=== PATIENT | female | born 2000 | race American Indian/Alaskan Native ===

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

== ENCOUNTER 2020-02-18 01:20 | Emergency (ER) | payer OTHER, MEDICAID ==
[2020-02-18 01:40] VITALS: BP 137/84
[2020-02-18] MEDS ORDERED: IBUPROFEN 400 MG TAB PO ONE (02:26)
[2020-02-18] MEDS ORDERED: ACETAMINOPHEN 325 MG TAB PO ONE (02:26)
--- NOTE | 2020-02-18 03:39 | XRay Report ---
Complete rib series with frontal chest 3 views INDICATION: Chest pain IMPRESSION: No displaced rib fracture is identified. The lungs are clear. No pleural effusion. Signer Name: Francisco Gutiérrez MD Signed: 02/18/2020 3:35 AM Workstation Name: [id number]
[2020-02-18 03:44] LABS: Bacteria,Urine 1+ /HPF (Negative); Bilirubin,Urine NEG (Negative); Blood,Urine NEG (Negative); Color,Urine Yellow (Yellow); Mucus,Urine 1+ /HPF; Protein,Urine <15 mg/dL mg/dL (Negative)
[2020-02-18 03:51] LABS: HCG Qualitative,Urine Negative (Negative)
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
== END 2020-02-18 04:45 | disposition home or self-care (01) ==
LOC: ED 01:20
DX: S20.212A Contusion of left front wall of thorax, initial encounter (principal); J45.909 Unspecified asthma, uncomplicated; F12.10 Cannabis abuse, uncomplicated; Z79.1 Long term (current) use of non-steroidal anti-inflammatories (NSAID); Z79.899 Other long term (current) drug therapy; Z88.8 Allergy status to other drugs, medicaments and biological substances; Y04.8XXA Assault by other bodily force, initial encounter; Y93.89 Activity, other specified; Y92.89 Other specified places as the place of occurrence of the external cause; Y99.8 Other external cause status
CPT/HCPCS: 81001; 81025; 87086

== ENCOUNTER 2020-10-27 16:55 | Emergency (ER) | payer MEDICAID, OTHER ==
[2020-10-27 17:49] VITALS: BP 122/86
[2020-10-27 18:50] LABS: Basophils % (Auto) 0.4 % (0.0-1.8); Eosinophils # (Auto) 0.1 K/mm3 (0.0-0.4); Eosinophils % (Auto) 1.2 % (0.0-4.3); Hematocrit 40.6 % (30.3-42.9); Hemoglobin 13.7 gm/dl (10.1-14.3); Lymphocytes # (Auto) 1.5 K/mm3 (1.2-5.4); Lymphocytes % (Auto) 27.9 % (13.4-35.0); Mean Corpuscular HGB Conc 34 % (30-34); Mean Corpuscular Volume 86 fl (79-97); Monocytes # (Auto) 0.3 K/mm3 (0.0-0.8); Monocytes % (Auto) 6.5 % (0.0-7.3); Platelet Count 242 K/mm3 (140-440); Red Blood Count 4.74 M/mm3 (3.65-5.03); Red Cell Distribution Width 12.8 % (13.2-15.2)
[2020-10-27 18:53] LABS: Bilirubin,Urine NEG (Negative); Blood,Urine SM (Negative); Color,Urine Amber (Yellow); Mucus,Urine 3+ /HPF
[2020-10-27 19:14] LABS: Alanine Aminotransferase 12 units/L (7-56); Blood Urea Nitrogen 10 mg/dL (7-17); Calcium 10.3 mg/dL (8.4-10.2); Hemolysis Index 6
[2020-10-27 19:17] LABS: BUN/Creatinine Ratio 14
--- NOTE | 2020-10-27 20:11 | Emergency Department Report ---
ED Female HPI - General Chief complaint: Weakness Stated complaint: WARTS BLEEDING Source: patient Mode of arrival: Ambulatory Limitations: No Limitations - History of Present Illness Initial comments: Patient is a A0 19-year-old -[place] female with a history of asthma and anxiety who presents to the ED with complaint of acute onset persistent diffuse generalized weakness, vaginal itching, vaginal irritation and vaginal pain for the last 2 days. Patient also states that she has had significant family stress and that 24 hours ago she developed heavy vaginal bleeding which persisted for 3 hours and which has since resolved. Patient states that her LMP was October 14, 2020 and that she is not on any control. Patient admits to having unprotected sexual intercourse. Patient denies dizziness, syncope, fever, chills, cough, sore throat, abdominal pain, dysuria, urinary frequency and urgency, vaginal discharge, low back pain, nausea and vomiting or diarrhea. MD Complaint: vaginal bleeding, other (vaginal itching and pain; generalized weakness) -: Sudden, days(s) (2) Location: labia Radiation: non-radiating Severity: moderate Severity scale (0 -10): 3 Quality: burning, aching, other (itching) Consistency: constant Improves with: none Worsens with: none Are you Now?: No Associated Symptoms: denies other symptoms, rash (mildly erythematous itchy painful rash on clitoris and labia minora). denies: vaginal discharge, vaginal bleeding, abdominal pain, nausea/vomiting, fever/chills, headaches, loss of appetite, dysuria, hematuria, seizure, shortness of breath, syncope, weakness - Related Data Sexually active: Yes : 1 Para: 1 A: 0 Previous Rx's Medication Instructions Recorded Last Taken Type Acyclovir [Zovirax Tab] 800 mg PO Q12H #14 tab 12/25/16 Unknown Rx Acyclovir [Zovirax] 1 applic TP TID #1 tube 12/25/16 Unknown Rx Ferrous Sulfate [Feosol 325 MG tab] 325 mg PO BID #30 tablet 10/31/18 Unknown Rx Ibuprofen [Motrin] 600 mg PO Q8H PRN #30 tablet 10/31/18 Unknown Rx Ibuprofen [Motrin 600 MG tab] 600 mg PO Q8H PRN #20 tablet 01/17/19 Unknown Rx Nitrofurantoin Luna/M-Cryst 100 mg PO Q12HR #14 capsule 01/17/19 Unknown Rx [Macrobid CAP] Phenazopyridine [Pyridium] 200 mg PO BID #6 tab 01/17/19 Unknown Rx Ibuprofen [Motrin 400 MG tab] 400 mg PO Q8H PRN #30 tablet 02/18/20 Unknown Rx tiZANidine [Zanaflex 4mg TAB] 4 mg PO Q12H PRN #12 tablet 02/18/20 Unknown Rx traMADoL [Ultram] 50 mg PO Q6HR PRN #12 tablet 02/18/20 Unknown Rx Nystatin Oint [Mycostatin Oint] 1 applicatio TP BID #1 tube 10/27/20 Unknown Rx hydrOXYzine PAMOATE [Vistaril] 25 mg PO Q12HR PRN #30 capsule 10/27/20 Unknown Rx Allergies Allergy/AdvReac Type Severity Reaction Status Date / Time bacitracin Allergy Intermediate Hives Verified 10/31/18 10:05 neomycin Allergy Intermediate Itching Verified 10/31/18 10:06 [From Neosporin ([id number])] polymyxin B Allergy Intermediate Itching Verified 10/31/18 10:06 [From Neosporin ([id number])] ED Review of Systems ROS: Stated complaint: WARTS BLEEDING Other details as noted in HPI Constitutional: weakness (generalized). denies: chills, fever Eyes: denies: eye pain, eye discharge, vision change ENT: denies: ear pain, throat pain Respiratory: denies: cough, shortness of breath, wheezing Cardiovascular: denies: chest pain, palpitations Endocrine: no symptoms reported Gastrointestinal: denies: abdominal pain, nausea, vomiting, diarrhea Genitourinary: other (vaginal itching and pain). denies: urgency, dysuria, discharge Musculoskeletal: denies: back pain, joint swelling, arthralgia Skin: rash (Mild erythematous itchy rash on labia minora and around clitoris), change in color, pruritus. denies: lesions, change in hair/nails, other Neurological: denies: headache, weakness, paresthesias Psychiatric: denies: anxiety, depression Hematological/Lymphatic: denies: easy bleeding, easy bruising ED Past Medical Hx - Past Medical History Previous Medical History?: Yes Hx Hypertension: No Hx Congestive Heart Failure: No Hx Diabetes: No Hx Deep Vein Thrombosis: No Hx Renal Disease: No Hx Sickle Cell Disease: No Hx Seizures: No Hx Asthma: Yes Hx COPD: No Hx HIV: No Additional medical history: eczema - Surgical History Past Surgical History?: No Additional Surgical History: denies - Social History Smoking Status: Never Smoker Substance Use Type: None - Medications Home Medications: Home Medications Medication Instructions Recorded Confirmed Last Taken Type Acyclovir [Zovirax Tab] 800 mg PO Q12H #14 tab 12/25/16 10/31/18 Unknown Rx Acyclovir [Zovirax] 1 applic TP TID #1 tube 12/25/16 10/31/18 Unknown Rx Ferrous Sulfate [Feosol 325 MG tab] 325 mg PO BID #30 tablet 10/31/18 Unknown Rx Ibuprofen [Motrin] 600 mg PO Q8H PRN #30 tablet 10/31/18 Unknown Rx Ibuprofen [Motrin 600 MG tab] 600 mg PO Q8H PRN #20 tablet 01/17/19 Unknown Rx Nitrofurantoin Luna/M-Cryst 100 mg PO Q12HR #14 capsule 01/17/19 Unknown Rx [Macrobid CAP] Phenazopyridine [Pyridium] 200 mg PO BID #6 tab 01/17/19 Unknown Rx Ibuprofen [Motrin 400 MG tab] 400 mg PO Q8H PRN #30 tablet 02/18/20 Unknown Rx tiZANidine [Zanaflex 4mg TAB] 4 mg PO Q12H PRN #12 tablet 02/18/20 Unknown Rx traMADoL [Ultram] 50 mg PO Q6HR PRN #12 tablet 02/18/20 Unknown Rx Nystatin Oint [Mycostatin Oint] 1 applicatio TP BID #1 tube 10/27/20 Unknown Rx hydrOXYzine PAMOATE [Vistaril] 25 mg PO Q12HR PRN #30 capsule 10/27/20 Unknown Rx ED Physical Exam - General Limitations: No Limitations General appearance: alert, in no apparent distress - Head Head exam: Present: atraumatic, normocephalic, normal inspection - Eye Eye exam: Present: normal appearance, PERRL, EOMI Pupils: Present: normal accommodation - ENT ENT exam: Present: normal exam, normal orophraynx, mucous membranes moist, TM's normal bilaterally, normal external ear exam - Neck Neck exam: Present: normal inspection, full ROM - Respiratory Respiratory exam: Present: normal lung sounds bilaterally. Absent: respiratory distress, wheezes, rales, rhonchi, chest wall tenderness, accessory muscle use, decreased breath sounds, prolonged expiratory - Cardiovascular Cardiovascular Exam: Present: normal rhythm, bradycardia, normal heart sounds. Absent: systolic murmur, diastolic murmur, rubs, gallop - GI/Abdominal GI/Abdominal exam: Present: soft, normal bowel sounds. Absent: tenderness, guarding, rebound, hyperactive bowel sounds, hypoactive bowel sounds, organomegaly, bruit - External exam: Present: erythema, other (Mildly erythematous scaly rashes on labia minora and clitoris consistent with vaginal yeast infection) Speculum exam: Present: normal speculum exam Bi-manual exam: Present: other (Female provider service dispatcher Ms. Laura GONZALEZ present) - Extremities Exam Extremities exam: Present: normal inspection, full ROM, normal capillary refill - Back Exam Back exam: Present: normal inspection, full ROM. Absent: tenderness, CVA tenderness (R), CVA tenderness (L), muscle spasm, paraspinal tenderness, vertebral tenderness - Neurological Exam Neurological exam: Present: alert, oriented X3, CN II-XII intact, normal gait, reflexes normal - Psychiatric Psychiatric exam: Present: normal affect, normal mood. Absent: depressed - Skin Skin exam: Present: warm, dry, intact, normal color, rash (Mild erythematous scaly rash on labia minora and clitoris), erythema. Absent: cyanosis, petechiae, pallor, abrasion, ecchymosis ED Course Vital Signs 10/27/20 17:45 Temperature 98.0 F Pulse Rate 51 L Respiratory 16 Rate Blood Pressure 122/86 O2 Sat by Pulse 100 Oximetry ED Medical Decision Making - Lab Data Result diagrams: 10/27/20 18:32 10/27/20 18:32 - Medical Decision Making This is a A0 19-year-old -[place] female with a history of asthma and anxiety who presents to the ED with complaint of acute onset persistent diffuse generalized weakness, vaginal itching, vaginal irritation and vaginal pain for the last 2 days. Patient also states that she has had significant family stress and that 24 hours ago she developed heavy vaginal bleeding which persisted for 3 hours and which has since resolved. Patient states that her LMP was October 14, 2020 and that she is not on any control. Patient admits to having unprotected sexual intercourse. In the ED, patient is alert and oriented x3 and is not in any distress. Lab test results are reviewed and are all nonactionable. Urinalysis is unremarkable. Patient test is negative. Pelvic exam in the presence of a female provider service dispatcher Ms. Laura GONZALEZ showed mildly erythematous scaly rashes around the clitoris and labia minora consistent with vaginal yeast infection. Patient stated that she has a recently prescribed Diflucan 150 mg tablets at home and would prefer to take this as previously advised. Patient was therefore discharged home on medications for anxiety and nystatin ointment and advised to follow-up with her primary care physician or CERTIFIED FIRE INVESTIGATOR physician in 7 to 10 days for reevaluation. Patient advised return to the ED immediately if symptoms get worse. - Differential Diagnosis UTI; Paola vaginitis; STD; Bacterial vagosis Critical care attestation.: If time is entered above; I have spent that time in minutes in the direct care of this critically ill patient, excluding procedure time. ED Disposition Clinical Impression: Candidal vaginitis, Anxiety as acute reaction to exceptional stress Disposition: DC- TO HOME OR SELFCARE Is pt being admited?: No Does the pt Need Aspirin: No Condition: Stable Instructions: Vaginitis, Flhy-wa-[id number], Vaginal Yeast Infection, Adult, Generalized Anxiety Disorder, Adult Additional Instructions: All lab test results were reviewed and are all nonactionable. Your symptoms are likely due to vaginal yeast infection. Therefore take medications that you are ready have for yeast infection, apply the ointment to the affected area as advised. Return to the ED immediately if symptoms get worse. Otherwise follow- up with your primary care physician in 7 to 10 days for reevaluation. Prescriptions: Nystatin Oint [Mycostatin Oint] 1 applicatio TP BID #1 tube hydrOXYzine PAMOATE [Vistaril] 25 mg PO Q12HR PRN #30 capsule PRN Reason: Anxiety Referrals: [facility] [Provider Group] - 3-5 Days Time of Disposition: 20:20 Print Language: SENEGALESE
== END 2020-10-27 20:50 | disposition home or self-care (01) ==
LOC: ED 16:55
DX: B37.3 Candidiasis of vulva and vagina (principal); F41.1 Generalized anxiety disorder; F43.0 Acute stress reaction; J45.909 Unspecified asthma, uncomplicated; Z79.1 Long term (current) use of non-steroidal anti-inflammatories (NSAID); Z79.899 Other long term (current) drug therapy; Z88.8 Allergy status to other drugs, medicaments and biological substances
CPT/HCPCS: 36415; 80053; 81001; 84703; 85025; 99283

== ENCOUNTER 2020-11-10 14:04 | Emergency (ER) | payer MEDICAID, OTHER ==
--- NOTE | 2020-11-10 19:18 | Emergency Department Report ---
ED General Adult HPI - General Chief complaint: Chest Pain Stated complaint: CHEST PAIN/TONSILS HURTING/TROUBLE BREATHING Time Seen by Provider: 11/10/20 19:08 Source: patient Mode of arrival: Ambulatory Limitations: No Limitations - History of Present Illness Initial comments: 19-year-old female patient with history of asthma presents to emergency depar tment complaints of sore throat, productive cough, and chest pain for 3 days. No known sick contacts. No current steroid or antibiotic use. No recent travel. Patient has not received her COVID-19 vaccine series. Denies fever, chills, wheezing, shortness of breath, hemoptysis, dysphagia, hoarseness. Denies all other complaints at this time. - Related Data Previous Rx's Medication Instructions Recorded Last Taken Type Acyclovir [Zovirax Tab] 800 mg PO Q12H #14 tab 12/25/16 Unknown Rx Acyclovir [Zovirax] 1 applic TP TID #1 tube 12/25/16 Unknown Rx Ferrous Sulfate [Feosol 325 MG tab] 325 mg PO BID #30 tablet 10/31/18 Unknown Rx Ibuprofen [Motrin] 600 mg PO Q8H PRN #30 tablet 10/31/18 Unknown Rx Ibuprofen [Motrin 600 MG tab] 600 mg PO Q8H PRN #20 tablet 01/17/19 Unknown Rx Nitrofurantoin Childress/M-Cryst 100 mg PO Q12HR #14 capsule 01/17/19 Unknown Rx [Macrobid CAP] Phenazopyridine [Pyridium] 200 mg PO BID #6 tab 01/17/19 Unknown Rx Ibuprofen [Motrin 400 MG tab] 400 mg PO Q8H PRN #30 tablet 02/18/20 Unknown Rx tiZANidine [Zanaflex 4mg TAB] 4 mg PO Q12H PRN #12 tablet 02/18/20 Unknown Rx traMADoL [Ultram] 50 mg PO Q6HR PRN #12 tablet 02/18/20 Unknown Rx Nystatin Oint [Mycostatin Oint] 1 applicatio TP BID #1 tube 10/27/20 Unknown Rx hydrOXYzine PAMOATE [Vistaril] 25 mg PO Q12HR PRN #30 capsule 10/27/20 Unknown Rx Albuterol Sulfate [Proair 90 mcg IH Q4H PRN #1 aer.pow.ba 11/10/20 Unknown Rx Respiclick] predniSONE [Deltasone] 20 mg PO QDAY 5 Days tab 11/10/20 Unknown Rx Allergies Allergy/AdvReac Type Severity Reaction Status Date / Time bacitracin Allergy Intermediate Hives Verified 11/10/20 14:41 neomycin Allergy Intermediate Itching Verified 11/10/20 14:41 [From Neosporin ([id number])] polymyxin B Allergy Intermediate Itching Verified 11/10/20 14:41 [From Neosporin ([id number])] ED Review of Systems ROS: Stated complaint: CHEST PAIN/TONSILS HURTING/TROUBLE BREATHING Other details as noted in HPI Other: GENERAL: Negative for fever. ENT: Positive for sore throat. CARDIOVASCULAR: Positive for chest pain. PULMONARY: Positive for cough. GASTROINTESTINAL: Negative for abdominal pain. MUSCULOSKELETAL: Negative for back pain. NEUROLOGICAL: Negative for headache. INTEGUMENTARY: Negative for rash. ED Past Medical Hx - Past Medical History Hx Hypertension: No Hx Congestive Heart Failure: No Hx Diabetes: No Hx Deep Vein Thrombosis: No Hx Renal Disease: No Hx Sickle Cell Disease: No Hx Seizures: No Hx Asthma: Yes Hx COPD: No Hx HIV: No Additional medical history: eczema - Surgical History Additional Surgical History: denies - Social History Smoking Status: Never Smoker Substance Use Type: None - Medications Home Medications: Home Medications Medication Instructions Recorded Confirmed Last Taken Type Acyclovir [Zovirax Tab] 800 mg PO Q12H #14 tab 12/25/16 10/31/18 Unknown Rx Acyclovir [Zovirax] 1 applic TP TID #1 tube 12/25/16 10/31/18 Unknown Rx Ferrous Sulfate [Feosol 325 MG tab] 325 mg PO BID #30 tablet 10/31/18 Unknown Rx Ibuprofen [Motrin] 600 mg PO Q8H PRN #30 tablet 10/31/18 Unknown Rx Ibuprofen [Motrin 600 MG tab] 600 mg PO Q8H PRN #20 tablet 01/17/19 Unknown Rx Nitrofurantoin Childress/M-Cryst 100 mg PO Q12HR #14 capsule 01/17/19 Unknown Rx [Macrobid CAP] Phenazopyridine [Pyridium] 200 mg PO BID #6 tab 01/17/19 Unknown Rx Ibuprofen [Motrin 400 MG tab] 400 mg PO Q8H PRN #30 tablet 02/18/20 Unknown Rx tiZANidine [Zanaflex 4mg TAB] 4 mg PO Q12H PRN #12 tablet 02/18/20 Unknown Rx traMADoL [Ultram] 50 mg PO Q6HR PRN #12 tablet 02/18/20 Unknown Rx Nystatin Oint [Mycostatin Oint] 1 applicatio TP BID #1 tube 10/27/20 Unknown Rx hydrOXYzine PAMOATE [Vistaril] 25 mg PO Q12HR PRN #30 capsule 10/27/20 Unknown Rx Albuterol Sulfate [Proair 90 mcg IH Q4H PRN #1 aer.pow.ba 11/10/20 Unknown Rx Respiclick] predniSONE [Deltasone] 20 mg PO QDAY 5 Days tab 11/10/20 Unknown Rx ED Physical Exam - General Limitations: No Limitations - Other Other exam information: General: Awake and alert. Tearful, anxious. Head: Atraumatic, normocephalic. Eyes: EOMI. Pupils are equal and round. Normal sclera and conjunctiva. ENT: Oral mucosa is moist. Normal pharyngeal exam. Neck: Supple. No lymphadenopathy. Pulmonary: No respiratory distress. Clear to auscultation bilaterally. Cardiac: Regular rate and rhythm. Pulses are palpable and equal bilaterally. No lower extremity cyanosis or edema. Skin: Warm and dry. No rashes. Abdomen: Soft, non-tender, non-protuberant. No guarding, rigidity, or rebound. Bowel sounds are normal. No organomegaly or masses noted. Back: Normal alignment. No CVA tenderness. Extremities: Symmetrical. Full range of motion intact. Neurological: Alert and oriented, appropriately interactive, no focal deficits. Psych: Cooperative. Appropriate mood and affect. Speech is evenly metered. Thoughts are logically construed. ED Course Vital Signs 11/10/20 14:46 Temperature 98.6 F Pulse Rate 78 Respiratory 28 H Rate Blood Pressure 102/64 O2 Sat by Pulse 100 Oximetry ED Medical Decision Making - EKG Data 11/10/20 19:18 EKG shows normal sinus rhythm with a ventricular rate of 68 bpm. Normal axis. Normal [place] interval. Normal QT interval. Good R wave progression. No ST segment changes. Over read by attending emergency physician, who agrees with this interpretation. - Medical Decision Making Differential diagnosis including but not limited to: asthma exacerbation, pneumonia, pleural effusion, influenza, pertussis, viral upper respiratory infection Patient presents to the emergency department with signs and/or symptoms that arise low risk clinical suspicion for pulmonary embolism. The patient has none of the following clinical criteria: age >50, heart rate >100, room air O2 saturation <94%, history of DVT/PE, recent trauma/surgery, hemoptysis, exogenous estrogen, or signs/symptoms of DVT. As a result, this patient has very low probability of pulmonary embolism and further testing is not indicated. On reevaluation, patient is stable and symptoms have improved. No hypoxia, no respiratory distress. Tachypnea noted in triage resolved. She appears less tearful and less anxious. Chest x-ray without acute process. History and exam findings suggestive of viral upper respiratory infection. No clinical indication for further diagnostic work-up on an emergent basis at this time. COVID-19 testing is currently unavailable at this facility. Patient will be discharged home with beta agonist inhaler and short course of steroid due to her history of underlying asthma. Patient expressed understanding and is agreeable to plan of care. Disease transmission precautions discussed. Strict return precautions provided. Repeat exam is unremarkable and benign. History, exam, diagnostic testing, and current condition do not suggest worrisome pathology to warrant further testing, continued ED treatment, admission, or surgical evaluation at this point. Given the low probability of a significant medical illness, it would be more likely to result in harm than benefit to perform further testing at this stage. Discussed findings, presumptive diagnosis, need for follow-up and specific signs/symptoms that should prompt immediate return to the emergency department. Instructions were explained in detail to the patient in addition to giving written discharge information. Patient expressed understanding and was given the opportunity to ask questions, all of which were satisfactorily answered prior to discharge home. Critical care attestation.: If time is entered above; I have spent that time in minutes in the direct care of this critically ill patient, excluding procedure time. ED Disposition Clinical Impression: Viral upper respiratory tract infection with cough, History of asthma Disposition: -01 TO HOME OR SELFCARE Is pt being admited?: No Does the pt Need Aspirin: No Condition: Stable Instructions: Viral Respiratory Infection, [id number] Additional Instructions: Take Tylenol every 4 hours and Motrin every 8 hours as needed for pain. Use Albuterol as previously directed. Take Prednisone as directed. Use [id number] cough/cold medicines as directed. Honey is an excellent natural cough suppressant. Rest. Drink plenty of fluids. Wash hands frequently to prevent disease transmission. Do not share food or drinks with others. Follow-up with primary care provider this week. Call tomorrow to schedule an appointment. See referral information below. Return to the emergency department immediately for new or worsening symptoms. Prescriptions: predniSONE [Deltasone] 20 mg PO QDAY 5 Days tab Albuterol Sulfate [Proair Respiclick] 90 mcg IH Q4H PRN #1 aer.pow.ba PRN Reason: Shortness Of Breath Referrals: ROSEANNE HERNANDEZ MD [Staff Physician] - 3-5 Days [facility] [place] [facility] [place]] - 3-5 Days [facility] [Outside] - 3-5 Days [facility] [Outside] - 3-5 Days [facility] [Provider Group] - 3-5 Days Forms: Work/School Release Form(ED) Time of Disposition: 20:41
--- NOTE | 2020-11-10 19:43 | XRay Report ---
CHEST 2 VIEWS INDICATION / CLINICAL INFORMATION: cough/congestion; hx asthma. COMPARISON: None available. FINDINGS: SUPPORT DEVICES: None. HEART / MEDIASTINUM: No significant abnormality. LUNGS / PLEURA: No significant pulmonary or pleural abnormality. No pneumothorax. ADDITIONAL FINDINGS: No significant additional findings. IMPRESSION: 1. No acute findings. Signer Name: Marek Null MD Signed: 11/10/2020 7:39 PM Workstation Name: [id number]
[2020-11-11 00:26] VITALS: BP 118/67
--- NOTE | 2020-11-11 17:50 | Electrocardiograph Report ---
[facility] Test Date: 2020-11-10 Test Time: 15:01:02 Pat Name: TRINI MICHAELS Department: Room: Gender: F Production Graphic Designer: JANEEN : 2000 Requested By: ED DOC Order Number: [id number] Reading MD: Elvis Porter Measurements Intervals [place] Rate: 68 P: 59 WV: 156 QRS: 75 QRSD: 69 T: 58 QT: 376 QTc: 401 Interpretive Statements Sinus rhythm No previous ECG available for comparison Electronically Signed On 11-11-2020 17:50:43 EDT by Elvis Porter
== END 2020-11-10 21:21 | disposition home or self-care (01) ==
LOC: ED 14:04
DX: J06.9 Acute upper respiratory infection, unspecified (principal); J45.909 Unspecified asthma, uncomplicated; L30.9 Dermatitis, unspecified; Z88.1 Allergy status to other antibiotic agents
CPT/HCPCS: 71046; 93005; 99283

== ENCOUNTER 2020-11-16 20:18 | Emergency (ER) | payer OTHER, MEDICAID | END 2020-11-16 20:23 | disposition left against medical advice (07) | LOC: ED 20:18 | DX: R10.9 Unspecified abdominal pain (principal); Z53.21 Procedure and treatment not carried out due to patient leaving prior to being seen by health care provider ==

== ENCOUNTER 2021-12-05 14:25 | Outpatient (CLI) | payer OTHER ==
[2021-12-05 16:22] VITALS: BP 109/60
--- NOTE | 2021-12-06 06:29 | Ultrasound Report ---
US OB BPP wo non-stress INDICATION / CLINICAL INFORMATION: bpp/juvenal COMPARISON: None available. FINDINGS: BREATHING MOVEMENT = 2 GROSS BODY MOVEMENT = 2 TONE = 2 QUALITATIVE AMNIOTIC FLUID VOLUME = 2 TOTAL BIOPHYSICAL SCORE = 11/20 heart rate 143 bpm. Estimated gestational age 39 weeks 1 day. IMPRESSION: 1. biophysical profile score 11/20 Signer Name: Nate Gold II, MD Signed: 12/06/2021 6:25 AM Workstation Name: [id number]
--- NOTE | 2021-12-06 06:31 | Ultrasound Report ---
US OB limited INDICATION / CLINICAL INFORMATION: bpp/juvenal COMPARISON: None available. TECHNIQUE: Using a transcutaneous probe, multiple grayscale, color Doppler, and spectral Doppler imag es of the uterus and fetus were captured and stored. FINDINGS: BREATHING MOVEMENT = 2 GROSS BODY MOVEMENT = 2 TONE = 2 QUALITATIVE AMNIOTIC FLUID VOLUME = 2 TOTAL BIOPHYSICAL SCORE = 8/8 heart rate 143 bpm. Amniotic fluid index 9.6 cm. IMPRESSION: 1. Normal biophysical profile score. Signer Name: Nate Gold II, MD Signed: 12/06/2021 6:27 AM Workstation Name: [id number]
== END 2021-12-05 20:55 | disposition home or self-care (01) ==
LOC: TRG 14:25 → APU 14:26 → TRG 20:55
PROVIDERS: ATTEND Obstetrics & Gynecology
DX: Z34.93 Encounter for supervision of normal pregnancy, unspecified, third trimester (principal); Z3A.40 40 weeks gestation of pregnancy
CPT/HCPCS: 59025; 76815; 76819

== ENCOUNTER 2021-12-06 13:56 | Inpatient (IN) | payer OTHER ==
[2021-12-06] MEDS ORDERED: CARBOPROST TROMETHAMINE 250 MCG/1 ML INJ IM PRN (17:37)
[2021-12-06] MEDS ORDERED: miSOPROStol 200 MCG TAB PR PRN (17:37)
[2021-12-06] MEDS ORDERED: METHYLERGONOVINE MALEATE 0.2 MG/ML VIAL IM PRN (17:37)
[2021-12-06] MEDS ORDERED: ePHEDrine SULFATE 50 MG/1 ML INJ IV PRN (17:37)
[2021-12-06] MEDS ORDERED: MINERAL OIL 30 ML ORAL LIQD PO PRN (17:37)
[2021-12-06] MEDS ORDERED: OXYTOCIN 10 UNIT/1 ML INJ IM PRN (17:37)
[2021-12-06] MEDS ORDERED: ACETAMINOPHEN 325 MG TAB PO PRN (17:37)
[2021-12-06] MEDS ORDERED: fentaNYL 100 MCG/2 ML INJ IV PRN (17:37)
[2021-12-06] MEDS ORDERED: ONDANSETRON 4 MG/2 ML INJ IV PRN (17:37)
[2021-12-06] MEDS ORDERED: BUTORPHANOL 2 MG/1 ML INJ IV PRN (17:37)
[2021-12-06] MEDS ORDERED: LOPERAMIDE 2 MG CAP PO PRN (17:37)
[2021-12-06] MEDS ORDERED: LIDOCAINE (2%) 20 MG/1 ML VIAL 20 ML MDV INFILTRATI ONE (17:37)
[2021-12-06] MEDS ORDERED: TERBUTALINE 1 MG/1 ML INJ SUB-Q PRN (17:37)
[2021-12-06] MEDS ORDERED: AMPICILLIN/NS 2 GM/100 ML 2 GM/100 ML BAG IV ONE (19:07)
[2021-12-06] MEDS ORDERED: OXYTOCIN DRIP 30 UNITS/500 ML BAG IV SCH (20:00)
[2021-12-06] MEDS ORDERED: AMPICILLIN/NS 1 GM/50 ML 1 GM/50 ML BAG IV SCH (20:00)
[2021-12-06 20:35] LABS: Hematocrit 30.1 % (30.3-42.9); Mean Corpuscular HGB Conc 33 % (30-34); Mean Corpuscular Volume 84 fl (79-97); Platelet Count 234 K/mm3 (140-440); Red Cell Distribution Width 13.2 % (13.2-15.2)
[2021-12-07] MEDS: LACTATED RINGERS 1,000 ML IV SCH ×3 (01:53→22:36)
[2021-12-07] MEDS ORDERED: ALUMINUM HYDROXIDE 320 MG/5 ML PO SCH ×2 (02:58→07:30)
[2021-12-07] MEDS ORDERED: OXYTOCIN DRIP 30 UNITS/500 ML BAG IV SCH ×3 (03:00→11:00)
[2021-12-07] MEDS ORDERED: ALUM-MAG HYDROXIDE-SIMETHICONE 200-200-20MG/5ML ORAL LIQD 30 ML PO PRN (03:55)
[2021-12-07] MEDS ORDERED: FLUCONAZOLE 100 MG/10 ML ORAL SYRINGE PO NR (10:00)
[2021-12-07] MEDS ORDERED: DINOPROSTONE 10 MG VAG SUPP VG NR (10:00)
[2021-12-07] MEDS ORDERED: LIDOCAINE (2%) 20 MG/1 ML VIAL 20 ML MDV INFILTRATI ONE (11:00)
[2021-12-07] MEDS ORDERED: METHYLERGONOVINE MALEATE 0.2 MG/ML VIAL IM PRN (11:00)
[2021-12-07] MEDS ORDERED: TERBUTALINE 1 MG/1 ML INJ SUB-Q PRN (11:00)
[2021-12-07] MEDS ORDERED: ePHEDrine SULFATE 50 MG/1 ML INJ IV PRN (11:00)
--- NOTE | 2021-12-07 11:14 | History and Physical Report ---
History of Present Illness Date of examination: 12/06/21 Date of admission: 12/06/21 17:38 Chief complaint: Pelvic painx 2 days. History of present illness: 40+1 wks gestation. Presented in L&D 12/05/21 with pelvics, stating she was seen last in May 2021 at 9-10 wks and was given a due date of 12/05/21 by Premier PARKER. Office evaluation showed lagging growth at 37 wks with decreased KRYSTA. Was admitted into the hospital as a result. Past History Past Surgical History: no surgical history - Obstetrical History Expected Date of Delivery: 12/05/21 Actual Gestation: 40 Week(s) 2 Day(s) : 2 Para: 1 Medications and Allergies Allergies Allergy/AdvReac Type Severity Reaction Status Date / Time bacitracin Allergy Intermediate Hives Verified 11/10/20 14:41 neomycin Allergy Intermediate Itching Verified 11/10/20 14:41 [From Neosporin ([id number])] polymyxin B Allergy Intermediate Itching Verified 11/10/20 14:41 [From Neosporin ([id number])] hydrocortisone Allergy Itching Verified 12/06/21 17:07 nickel Allergy Hives Verified 12/06/21 17:06 Home Medications Medication Instructions Recorded Confirmed Last Taken Type Acyclovir [Zovirax Tab] 800 mg PO Q12H #14 tab 12/25/16 10/31/18 Unknown Rx Acyclovir [Zovirax] 1 applic TP TID #1 tube 12/25/16 10/31/18 Unknown Rx Ferrous Sulfate [Feosol 325 MG tab] 325 mg PO BID #30 tablet 10/31/18 Unknown Rx Ibuprofen [Motrin] 600 mg PO Q8H PRN #30 tablet 10/31/18 Unknown Rx Ibuprofen [Motrin 600 MG tab] 600 mg PO Q8H PRN #20 tablet 01/17/[address] [facility] 100 mg PO Q12HR #14 capsule 01/17/19 Unknown Rx [Macrobid CAP] Phenazopyridine [Pyridium] 200 mg PO BID #6 tab 01/17/19 Unknown Rx Ibuprofen [Motrin 400 MG tab] 400 mg PO Q8H PRN #30 tablet 02/18/20 Unknown Rx tiZANidine [Zanaflex 4mg TAB] 4 mg PO Q12H PRN #12 tablet 02/18/20 Unknown Rx traMADoL [Ultram] 50 mg PO Q6HR PRN #12 tablet 02/18/20 Unknown Rx Nystatin Oint [Mycostatin Oint] 1 applicatio TP BID #1 tube 10/27/20 Unknown Rx hydrOXYzine PAMOATE [Vistaril] 25 mg PO Q12HR PRN #30 capsule 10/27/20 Unknown Rx Albuterol Sulfate [Proair 90 mcg IH Q4H PRN #1 aer.pow.ba 11/10/20 Unknown Rx Respiclick] predniSONE [Deltasone] 20 mg PO QDAY 5 Days tab 11/10/20 Unknown Rx Active Meds: Active Medications Acetaminophen (Acetaminophen 325 Mg Tab) 650 mg PO Q4H PRN PRN Reason: Pain, Mild (1-3) Al Hydrox/Mg Hydrox/Simethicone (Alum-Mag Hydroxide-Simethicone [id number]/5ml Oral Liqd 30 Ml) 30 ml PO Q4H PRN PRN Reason: Indigestion Last Admin: 12/07/21 04:04 Dose: 30 ml Butorphanol Tartrate (Butorphanol 2 Mg/1 Ml Inj) 1 mg IV Q2H PRN PRN Reason: Pain, Moderate(4-6) LABOR PAIN Carboprost Tromethamine (Carboprost Tromethamine 250 Mcg/1 Ml Inj) 250 mcg IM ONCE PRN PRN Reason: Uterine Bleeding Dinoprostone (Dinoprostone 10 Mg Vag Supp) 10 mg VG ONCE NR Stop: 12/19/21 09:59 Ephedrine Sulfate (Ephedrine Sulfate 50 Mg/1 Ml Inj) 10 mg IV Q2M PRN PRN Reason: Hypotension Fentanyl (Fentanyl 100 Mcg/2 Ml Inj) 100 mcg IV Q2H PRN PRN Reason: Pain,Severe (7-10) LABOR PAIN Fluconazole (Fluconazole 100 Mg/10 Ml Oral Syringe) 150 mg PO ONCE NR; Protocol Stop: 12/07/21 15:00 Ampicillin Sodium (Ampicillin/Ns 1 Gm/50 Ml) 1 gm in 50 mls @ 100 mls/hr IV Q4H ORI; Protocol Lactated Ringer's (Lactated Ringers) 1,000 mls @ 125 mls/hr IV DIRECT ORI Last Admin: 12/07/21 09:10 Dose: 125 mls/hr Oxytocin/Sodium Chloride (Pitocin/Ns 30 Unit/500ml) 30 units in 500 mls @ 0 mls/hr IV TITR ORI; Protocol Last Admin: 12/07/21 01:54 Dose: 1 mls/hr, 1 mls/hr Lidocaine (Lidocaine (2%) 20 Mg/1 Ml Vial 20 Ml Mdv) 20 ml INFILTRATI ONCE ONE Stop: 12/07/21 11:01 Loperamide HCl (Loperamide 2 Mg Cap) 2 mg PO ONCE PRN PRN Reason: give with Hemabate Methylergonovine Maleate (Methylergonovine Maleate 0.2 Mg/Ml Vial) 0.2 mg IM ONCE PRN PRN Reason: Uterine Bleeding Mineral Oil (Mineral Oil 30 Ml Oral Liqd) 30 ml PO QHS PRN PRN Reason: Constipation Misoprostol (Misoprostol 200 Mcg Tab) 800 mcg DC ONCE PRN PRN Reason: Uterine Bleeding Ondansetron HCl (Ondansetron 4 Mg/2 Ml Inj) 4 mg IV Q8H PRN PRN Reason: Nausea And Vomiting Oxytocin (Oxytocin 10 Unit/1 Ml Inj) 10 unit IM ONCE PRN PRN Reason: Uterine Bleeding Terbutaline Sulfate (Terbutaline 1 Mg/1 Ml Inj) 0.25 mg SUB-Q ONCE PRN PRN Reason: Hyperstimulation/Hypertonicity Review of Systems All systems: negative Gastrointestinal: abdominal pain Genitourinary: pelvic pain - Vital Signs Vital signs: Vital Signs Pulse BP 78 99/56 12/06/21 16:15 12/06/21 16:15 Temp Pulse Resp BP Pulse Ox 98.4 F 64 20 115/66 99 12/06/21 22:13 12/07/21 11:06 12/06/21 22:13 12/07/21 10:14 12/07/21 11:06 - Physical Exam Lungs: Positive: Normal air movement Abdomen: Positive: normal appearance, soft, distention, normal bowel sounds. Negative: tenderness Genitourinary (Female): Positive: normal external genitalia, normal perenium Vulva: both: normal Vagina: Positive: discharge Cervix: Negative: lesion, discharge Uterus: Positive: enlarged, normal contour Anus/Rectum: Positive: normal perianal skin, heme negative. Negative: rectal mass, hemorrhoids Extremities: Positive: normal Deep Tendon Reflex Grade: Normal +2 - Obstetrical FHR: auscultation normal Uterine Contraction Pattern: Irregular Uterine Contraction Intensity: Mild Results Result Diagrams: 12/06/21 20:13 Abnormal lab results 12/06/21 Range/Units 20:13 RBC 3.60 L (3.65-5.03) M/mm3 Hgb 10.0 L (10.1-14.3) gm/dl Hct 30.1 L (30.3-42.9) % All other labs normal. Assessment and Plan - Patient Problems (1) 40 weeks gestation of Current Visit: Yes Status: Acute (2) Postmaturity , 40-42 weeks gestation Current Visit: Yes Status: Acute (3) IUGR (intrauterine growth restriction) Current Visit: Yes Status: Acute Plan to address problem: Medical records obtained from [facility]. (4) Oligohydramnios antepartum Current Visit: Yes Status: Acute Qualifiers: Qualified Code(s): O41.00X0 - Oligohydramnios, unspecified trimester, not applicable or unspecified Plan to address problem: for induction of labor.
[2021-12-07 16:20] LABS: Hematocrit 33.4 % (30.3-42.9); Hemoglobin 10.9 gm/dl (10.1-14.3)
[2021-12-07 16:49] LABS: Hepatitis C Virus Antibody Non-Reactive (NonReactive)
[2021-12-07] MEDS ORDERED: NALOXONE 0.4 MG/1 ML INJ IV PRN (21:45)
--- NOTE | 2021-12-07 21:46 | Anesthesia Consultation ---
Anesthesia Consult and Med Hx Date of service: 12/07/21 - Airway Anesthetic Teeth Evaluation: Poor ROM Head & Neck: Adequate Mental/Hyoid Distance: Adequate Mallampati Class: Class II Intubation Access Assessment: Probably Good - Pulmonary Exam CTA: Yes - Cardiac Exam Cardiac Exam: RRR - Pre-Operative Health Status ASA Pre-Surgery Classification: ASA2 Proposed Anesthetic Plan: Epidural - Pulmonary Hx Smoking: No Hx Asthma: Yes (last attack 2011) COPD: No Hx Pneumonia: No - Cardiovascular System Hx Hypertension: No - Central Nervous System Hx Seizures: No Hx Psychiatric Problems: No - Endocrine Hx Renal Disease: No Hx End Stage Renal Disease: No Hx Hypothyroidism: No Hx Hyperthyroidism: No - Hematic Hx Anemia: No Hx Sickle Cell Disease: No - Other Systems Hx Alcohol Use: No Hx Substance Use: No Hx Obesity: No
--- NOTE | 2021-12-07 21:47 | Progress Note ---
Labor Epidural - Labor Epidural Start Time: 21:24 Stop Time: 21:32 Performed by:: NATALIIA CARDENAS Procedure: Patient is requesting a laboring epidural for laboring pain. Patient IDed, H&P reviewed, all questions and concerns were answered, and consent was signed. Timeout was performed at bedside. Patient in sitting position. Sterile prep and drape was performed. [3] ml of 1% lidocaine skin wheal at L[3]- L [4]. 17- gauge Tuohy epidural needle was advanced to loss of resistance with saline technique 6cm. Single dural perforation via 25 guage spinal needle placed through the shaft of Epidural needle. Positive CSF via spinal needle. Negative CSF negative blood via Epidural needle. Epidural catheter advanced to [10] centimeters. [NEGATIVE] Aspiration [NEGATIVE] test dose. Negative Paresthesia. Sterile dressing applied. Patient tolerated procedure.
[2021-12-07] MEDS ORDERED: fentaNYL-BUPIV 2 MCG/ML-0.125% 200 MCG/100 ML BAG EPIDURAL SCH (22:00)
[2021-12-07] MEDS: ePHEDrine SULFATE 50 MG/1 ML INJ IV PRN ×2 (22:35→22:58)
[2021-12-07] MEDS ORDERED: AMPICILLIN/NS 2 GM/100 ML 2 GM/100 ML BAG IV ONE (23:20)
[2021-12-08] MEDS ORDERED: PROMETHAZINE 25 MG TAB PO PRN (00:07)
[2021-12-08] MEDS ORDERED: PROMETHAZINE 25 MG RECT SUPP PR PRN (00:07)
[2021-12-08] MEDS ORDERED: LANOLIN/ZINC/DIMETHICONE (LANSINOH) 7 GM TP PRN (00:07)
[2021-12-08] MEDS ORDERED: ONDANSETRON 4 MG/2 ML INJ IV PRN (00:07)
[2021-12-08] MEDS ORDERED: KETOROLAC 30 MG/1 ML INJ IV PRN (00:07)
[2021-12-08] MEDS ORDERED: ACETAMINOPHEN 325 MG TAB PO PRN (00:07)
[2021-12-08] MEDS ORDERED: diphenhydrAMINE 25 MG CAP PO PRN (00:07)
[2021-12-08] MEDS ORDERED: WITCH HAZEL/ GLYCERIN PAD TP PRN (00:07)
[2021-12-08] MEDS ORDERED: MAGNESIUM HYDROXIDE (MOM) ORAL LIQD UDC PO PRN (00:07)
--- NOTE | 2021-12-08 00:12 | Procedure Note ---
OB Delivery Note - Delivery Date of Delivery: 12/07/21 Surgeon: MAIDA TOLEDO Estimated blood loss: 100cc - Vaginal Delivery presentation: vertex Delivery position: OA Intrapartum events: none Delivery induction: cervidil Delivery monitor: external FHT, external uterine Route of delivery: Delivery placenta: spontaneous, expressed Delivery cord: 3 umbilical vessels Episiotomy: none Delivery laceration: none Anesthesia: epidural - A at 1 minute: 8 at 5 minutes: 9 (2910g [6lbs 7oz]) Infant Gender: Female
[2021-12-08] MEDS: SENNOSIDES/DOCUSATE SODIUM 8.6/50 MG TAB PO SCH (03:14)
[2021-12-08] MEDS: IBUPROFEN 600 MG TAB PO SCH ×2 (03:14→17:38)
[2021-12-08] MEDS: HYDROcodone/ACETAMINOPHEN 5-325 MG TAB PO PRN ×2 (05:34→11:32)
--- NOTE | 2021-12-08 10:06 | Progress Note ---
Assessment and Plan - Patient Problems (1) 40 weeks gestation of Current Visit: Yes Status: Resolved (2) Postmaturity , 40-42 weeks gestation Current Visit: Yes Status: Resolved (3) IUGR (intrauterine growth restriction) Current Visit: Yes Status: Resolved (4) Oligohydramnios antepartum Current Visit: Yes Status: Resolved Qualifiers: Qualified Code(s): O41.00X0 - Oligohydramnios, unspecified trimester, not applicable or unspecified (5) Status post vaginal delivery Current Visit: Yes Status: Acute Plan to address problem: stable. Subjective - Subjective Date of service: 12/08/21 Principal diagnosis: Status post vagi delivery day 1. Interval history: 40+1 wks gestation. Presented in L&D 12/05/21 with pelvics, stating she was seen last in May 2021 at 9-10 wks and was given a due date of 12/05/21 by Premier PARKER. Office evaluation showed lagging growth at 37 wks with decreased KRYSTA. Was admitted into the hospital as a result. 12/08/21 . Doing great. Patient reports: appetite normal, voiding normally, pain well controlled, ambulating normally : doing well Objective - Vital Signs Latest vital signs: Vital Signs Temp Pulse Resp BP Pulse Ox Pulse Ox 12/08/21 08:24 97.9 F 61 18 104/55 99 12/08/21 05:34 16 12/08/21 04:16 98.0 F 18 109/62 12/08/21 03:18 99 12/08/21 03:14 16 12/08/21 02:46 81 97 12/08/21 02:41 98.5 F 16 114/65 12/08/21 02:15 80 98 12/08/21 02:10 71 98 12/08/21 02:05 73 98 12/08/21 02:02 80 109/58 12/08/21 02:00 83 99 12/08/21 01:54 75 100 12/08/21 01:50 72 99 12/08/21 01:47 73 116/62 12/08/21 01:45 74 99 12/08/21 01:40 74 99 12/08/21 01:35 74 98 12/08/21 01:32 72 122/65 12/08/21 01:30 87 97 12/08/21 01:25 71 100 12/08/21 01:20 73 98 12/08/21 01:17 84 115/57 12/08/21 01:15 76 97 12/08/21 01:10 77 98 12/08/21 01:05 95 H 98 12/08/21 01:02 82 123/56 12/08/21 01:00 89 99 12/08/21 00:55 91 H 99 12/08/21 00:50 83 100 12/08/21 00:48 86 135/63 12/08/21 00:45 84 100 12/08/21 00:40 91 H 99 12/08/21 00:35 82 100 12/08/21 00:33 83 147/73 12/08/21 00:30 91 H 100 12/08/21 00:25 93 H 99 12/08/21 00:20 113 H 99 12/08/21 00:17 98 H 137/74 12/08/21 00:15 102 H 100 12/08/21 00:10 101 H 99 12/08/21 00:05 93 H 100 12/08/21 00:03 99 H 135/66 12/07/21 23:59 125 H 100 12/07/21 23:55 136 H 100 12/07/21 23:50 109 H 100 12/07/21 23:45 107 H 100 12/07/21 23:42 92 H 132/83 12/07/21 23:40 100 H 100 12/07/21 23:35 96 H 100 12/07/21 23:30 109 H 100 12/07/21 23:25 80 100 12/07/21 23:23 83 117/56 12/07/21 23:20 95 H 115/56 100 12/07/21 23:15 98 H 100 12/07/21 23:14 105 H 114/65 12/07/21 23:10 100 H 100 12/07/21 23:09 91 H 114/74 12/07/21 23:05 96 H 97/56 90 12/07/21 23:00 89 100 12/07/21 22:58 89 89/53 12/07/21 22:55 72 98 12/07/21 22:53 66 95/53 12/07/21 22:50 61 98 12/07/21 22:48 67 102/57 12/07/21 22:45 64 94 12/07/21 22:43 67 100/50 12/07/21 22:40 68 99 12/07/21 22:39 61 104/54 86 12/07/21 22:35 61 100 12/07/21 22:34 69 94/52 12/07/21 22:30 60 99/51 12/07/21 22:29 63 99 12/07/21 22:25 80 96/55 99 12/07/21 22:20 71 100 12/07/21 22:19 67 105/59 12/07/21 22:15 68 99 12/07/21 22:13 62 99/52 12/07/21 22:10 65 100 12/07/21 22:06 61 107/54 12/07/21 22:05 72 100 12/07/21 22:04 65 118/56 12/07/21 22:02 70 120/57 12/07/21 22:00 66 115/56 100 12/07/21 21:58 63 111/55 12/07/21 21:56 75 118/57 12/07/21 21:55 66 100 12/07/21 21:54 63 107/57 12/07/21 21:52 85 113/66 12/07/21 21:50 76 114/63 100 12/07/21 21:48 79 112/62 12/07/21 21:46 58 L 112/58 12/07/21 21:45 62 100 12/07/21 21:44 63 109/58 12/07/21 21:42 61 108/57 12/07/21 21:40 71 100 12/07/21 21:36 81 117/59 12/07/21 21:35 75 100 12/07/21 21:34 68 130/67 12/07/21 21:32 81 124/64 12/07/21 21:30 89 129/66 99 12/07/21 21:25 105 H 100 12/07/21 21:20 74 100 12/07/21 21:15 85 100 12/07/21 21:10 69 100 12/07/21 21:07 71 124/60 12/07/21 21:05 72 100 12/07/21 19:30 98 12/07/21 18:49 77 98 12/07/21 18:44 69 97 12/07/21 18:39 74 99 12/07/21 18:34 84 100 12/07/21 18:29 87 98 12/07/21 18:24 83 99 12/07/21 18:19 84 98 12/07/21 18:14 71 115/68 100 12/07/21 18:09 94 H 100 12/07/21 18:03 70 98 12/07/21 17:59 74 99 12/07/21 17:54 78 97 12/07/21 17:49 73 98 12/07/21 17:44 65 99 12/07/21 17:39 68 99 12/07/21 17:34 71 99 12/07/21 17:29 71 99 12/07/21 17:24 69 99 12/07/21 17:19 75 98 12/07/21 17:14 82 98 12/07/21 17:13 81 110/66 12/07/21 17:09 79 99 12/07/21 17:04 79 99 12/07/21 16:59 98 H 98 12/07/21 16:54 74 99 12/07/21 16:49 83 98 12/07/21 16:44 81 99 12/07/21 16:39 94 H 99 12/07/21 16:34 84 99 12/07/21 16:29 84 99 12/07/21 16:24 86 99 12/07/21 16:19 86 98 12/07/21 16:14 83 115/64 99 12/07/21 16:09 83 98 12/07/21 16:04 87 99 12/07/21 15:59 88 94 12/07/21 15:58 64 90 12/07/21 15:51 81 99 12/07/21 15:46 82 99 12/07/21 15:41 76 99 12/07/21 15:36 71 99 12/07/21 15:31 76 97 12/07/21 15:26 82 97 12/07/21 15:21 67 98 12/07/21 15:16 76 99 12/07/21 15:15 74 105/53 12/07/21 15:11 76 99 12/07/21 15:06 69 98 12/07/21 15:01 70 99 12/07/21 14:56 70 99 08/25/22 14:51 75 99 12/07/21 14:46 78 99 12/07/21 14:41 76 98 12/07/21 14:36 75 99 12/07/21 14:31 68 98 12/07/21 14:26 76 99 12/07/21 14:21 76 99 12/07/21 14:16 68 99 12/07/21 14:14 75 102/53 12/07/21 14:11 67 99 12/07/21 14:06 63 99 12/07/21 14:01 66 99 12/07/21 13:56 63 98 12/07/21 13:51 67 98 12/07/21 13:46 64 98 12/07/21 13:41 65 98 12/07/21 13:36 66 99 12/07/21 13:31 71 98 12/07/21 13:26 73 97 12/07/21 13:21 70 98 12/07/21 13:16 75 98 12/07/21 13:14 68 94/51 12/07/21 13:11 82 98 12/07/21 13:06 81 98 12/07/21 13:01 70 98 12/07/21 12:56 67 98 12/07/21 12:51 80 99 12/07/21 12:46 75 99 12/07/21 12:41 80 99 12/07/21 12:36 76 99 12/07/21 12:31 75 99 12/07/21 12:26 67 99 12/07/21 12:21 70 99 12/07/21 12:16 71 98 12/07/21 12:15 62 102/57 12/07/21 12:11 62 98 12/07/21 12:06 68 99 12/07/21 12:01 60 98 12/07/21 11:56 63 98 12/07/21 11:51 64 99 12/07/21 11:46 58 L 100 12/07/21 11:42 73 82 L 12/07/21 11:41 65 100 12/07/21 11:40 67 118/71 12/07/21 11:36 66 100 12/07/21 11:31 91 H 99 12/07/21 11:26 64 98 12/07/21 11:21 62 98 12/07/21 11:16 64 98 12/07/21 11:14 58 L 86/45 12/07/21 11:11 66 98 12/07/21 11:06 64 99 12/07/21 11:01 56 L 99 12/07/21 10:56 55 L 100 12/07/21 10:53 87 94 12/07/21 10:51 88 100 12/07/21 10:46 71 99 12/07/21 10:41 62 99 12/07/21 10:36 69 99 12/07/21 10:31 73 99 12/07/21 10:26 68 100 12/07/21 10:21 94 H 88 12/07/21 10:16 63 99 12/07/21 10:14 72 115/66 12/07/21 10:11 70 99 12/07/21 10:06 77 99 Intake and Output 12/07/21 12/08/21 12/08/21 23:59 07:59 15:59 Intake Total 1000 Output Total 300 500 Balance 700 -500 Intake: IV 1000 Lactated Ringers 1,000 ml 1000 @ 125 mls/hr IV DIRECT ORI Rx#:[id number] Output: Urine 300 500 Indwelling Catheter 250 Uretheral ([place]) 50 Void 500 Other: Total, Output Amount 200 500 # Voids Void 1 Estimated Blood Loss 100 - Exam Lungs: Present: Normal air movement Abdomen: Present: normal appearance, soft, normal bowel sounds Uterus: Present: normal, firm Extremities: Present: normal Deep Tendon Reflex Grade: Normal +2 - Labs Labs: Laboratory Tests 12/06/21 12/06/21 12/07/21 20:00 20:13 11:40 WBC 8.8 RBC 3.60 L Hgb 10.0 L Hct 30.1 L MCV 84 MCH 28 MCHC 33 RDW 13.2 Plt Count 234 Syphilis IgG/IgM Ab SARS-CoV-2 (PCR) Negative Hep Bs Antigen Hepatitis C Antibody HIV 1&2 Antibody Rapid HIV P24 Antigen Rubella IgG Antibody Blood Type A POSITIVE Antibody Screen Negative 12/07/21 12/07/21 12/07/21 15:30 15:30 15:30 WBC RBC Hgb Hct MCV MCH MCHC RDW Plt Count Syphilis IgG/IgM Ab Nonreactive SARS-CoV-2 (PCR) Hep Bs Antigen Non-reactive Hepatitis C Antibody Non-reactive HIV 1&2 Antibody Rapid HIV P24 Antigen Rubella IgG Antibody Immune Blood Type Antibody Screen 12/07/21 15:30 WBC RBC Hgb 10.9 Hct 33.4 MCV MCH MCHC RDW Plt Count Syphilis IgG/IgM Ab SARS-CoV-2 (PCR) Hep Bs Antigen Hepatitis C Antibody HIV 1&2 Antibody Rapid Non react HIV P24 Antigen Non react Rubella IgG Antibody Blood Type Antibody Screen
--- NOTE | 2021-12-08 10:11 | Discharge Summary ---
Providers - Providers Date of Admission: 12/06/21 17:38 Date of discharge: 12/09/21 Attending physician: MAIDA TOLEDO MD 12/08/21 07:28 Consult to Case Management [CONS] Routine Services Needed at Discharge: Other Notified:: no Additional Physician Instructions: Limited care Primary care physician: MAIDA TOLEDO MD Hospitalization Reason for admission: observation, IUP at term, other (iugr, oligo) Delivery: Episiotomy: none Laceration: none Other procedures: none complications: none Discharge diagnosis: IUP at term delivered baby: female Condition at discharge: Good Disposition: 01 HOME / SELF CARE / HOMELESS - Discharge Diagnoses (1) 40 weeks gestation of Status: Resolved (2) Postmaturity , 40-42 weeks gestation Status: Resolved (3) IUGR (intrauterine growth restriction) Status: Resolved (4) Oligohydramnios antepartum Status: Resolved Qualifiers: Qualified Code(s): O41.00X0 - Oligohydramnios, unspecified trimester, not applicable or unspecified (5) Status post vaginal delivery Status: Acute Plan - Provider Discharge Summary Activity: routine, no sex for 6 weeks, no heavy lifting 4 weeks, no strenuous exercise Diet: routine Instructions: routine Additional instructions: [] Smoking cessation referral if applicable(refer to patient education folder for contact #) [] Refer to [facility]'s [facility] Booklet Call your doctor immediately for: * Fever > 100.5 * Heavy vaginal bleeding ( >1 pad per hour) * Severe persistent headache * Shortness of breath * Reddened, hot, painful area to leg or breast * Drainage or odor from incision. * Keep incision clean and dry at all times and follow doctor's instructions regarding bathing/showering - Follow up plan Follow up: MAIDA TOLEDO MD [Primary Care Provider] - 7 Days
--- NOTE | 2021-12-08 11:15 | Post Anesthesia Evaluation ---
- Post Anesthesia Evaluation Patient Participated: Yes Airway Patent: Yes Stable Respiratory Function: Yes Nausea/Vomiting: No Temp > 96.8F: Yes Pain Manageable: Yes Adequeate Hydration: Yes Anesthesia Complications: No Block Receding Appropriately: Yes Patient on Ventilator: No
[2021-12-08] MEDS: PRENATAL VIT27-FE FUMARATE-FOLIC ACID VIT TAB PO SCH (11:33)
[2021-12-08 13:29] LABS: Hematocrit 30.2 % (30.3-42.9)
[2021-12-08 14:23] LABS: Amphetamine Screen,Urine Negative; Benzodiazepines Screen,Urine Negative; Cocaine Screen,Urine Negative; Methadone Screen,Urine Negative; Opiate Screen,Urine Negative
[2021-12-08 14:39] LABS: Cannabinoid Screen,Urine Positive
[2021-12-09] MEDS: SENNOSIDES/DOCUSATE SODIUM 8.6/50 MG TAB PO SCH ×2 (01:23→10:33)
[2021-12-09] MEDS: IBUPROFEN 600 MG TAB PO SCH ×2 (01:23→10:33)
[2021-12-09] MEDS: PRENATAL VIT27-FE FUMARATE-FOLIC ACID VIT TAB PO SCH (10:33)
[2021-12-09 13:12] VITALS: BP 108/58
== END 2021-12-09 14:10 | disposition home or self-care (01) | DRG 807 ==
LOC: UNDOADMIN 13:56 → LD 13:56 → OB 12-08 02:29
PROVIDERS: ADMIT Obstetrics & Gynecology; ATTEND Obstetrics & Gynecology
PROC: 10E0XZZ Delivery of Products of Conception, External Approach (ICD-10-PCS; principal; 2021-12-07)
PROC: 3E0R3BZ Introduction of Anesthetic Agent into Spinal Canal, Percutaneous Approach (ICD-10-PCS; 2021-12-07)
PROC: 00HU33Z Insertion of Infusion Device into Spinal Canal, Percutaneous Approach (ICD-10-PCS; 2021-12-07)
PROC: 3E0P7VZ Introduction of Hormone into Female Reproductive, Via Natural or Artificial Opening (ICD-10-PCS; 2021-12-07)
DX: O36.5930 Maternal care for other known or suspected poor fetal growth, third trimester, not applicable or unspecified (principal); Z37.0 Single live birth; Z20.822 Contact with and (suspected) exposure to COVID-19; O41.00X0 Oligohydramnios, unspecified trimester, not applicable or unspecified; Z3A.40 40 weeks gestation of pregnancy; O48.0 Post-term pregnancy; O99.52 Diseases of the respiratory system complicating childbirth; J45.909 Unspecified asthma, uncomplicated; Z88.8 Allergy status to other drugs, medicaments and biological substances; Z91.040 Latex allergy status
CPT/HCPCS: 36415; 59025; 59200; 76815; 76819; 80307; 85014; 85018; 85027; 86592; 86706; 86762; 86803; 86850; 86900; 86901; 87806; G0378; J3490; J0290; J1450; J2405; J2590; J3010; J7120; Q0169; U0003